=== PATIENT | female | born 1955 | race Caucasian/White ===

== ENCOUNTER → 2017-04-16 | Outpatient (CLI) | payer BC ==
[~2017-04-16] MED LIST: ALBUAER2 INH; BUPR150T5 PO; GLC500 PO; LANS30CA12 PO; MECL1TAB42 PO; MELA1TAB4 PO; METH-1305 PO; MOME50SP5 NAE; ONDA4TAB7 SL; SIMV20TA2 PO; SNG10 PO
[2017-04-16 12:55] LABS: BASO % 0.8 %; BASO ABS # 0.05 K/uL (0-0.2); COMPLETE YES; EOS % 3.2 %; HEMATOCRIT 38.3 % (37-47); IG% 0.2 %; LYMPH % 32.1 %; MEAN CELL VOLUME 87.6 fL (80-100); MEAN CORPUSCULAR HEMOGLOBIN 27.7 pg (25-34); MEAN CORPUSCULAR HGB CONC 31.6 g/dl (32-36); MEAN PLATELET VOLUME 8.9 fL (7.4-10.4); MONO % 8.3 %; NEUT % 55.4 %; PLATELET COUNT 369 K/uL (130-400); RED BLOOD COUNT 4.37 M/uL (4.2-5.4); WHITE BLOOD COUNT 5.91 K/uL (4.8-10.8)
[2017-04-16 13:19] LABS: MAGNESIUM 2.2 mg/dl (1.8-2.4)
[2017-04-16 13:30] LABS: ESTIMATED AVERAGE GLUCOSE 131 mg/dl; HA1C FLAG Normal (Normal)
[2017-04-16 15:04] LABS: ALT/SGPT 22 U/L (12-78); BLOOD UREA NITROGEN 10 mg/dl (7-18); BUN/CREATININE RATIO 12.3 (10-20); CALCIUM 9.3 mg/dl (8.5-10.1); CARBON DIOXIDE 25 mmol/L (21-32); CHLORIDE 107 mmol/L (98-107); CHOLESTEROL 170 mg/dl (0-200); CREATININE 0.83 mg/dl (0.60-1.20); GLUCOSE 85 mg/dl (70-99); POTASSIUM 4.1 mmol/L (3.5-5.1); SODIUM 140 mmol/L (136-145); TRIGLYCERIDES 261 mg/dl (0-150); VERY LOW DENSITY LIPOPROT CALC 52 mg/dl
[2017-04-16 15:17] LABS: ALB/GLOB RATIO 1.1 (0.9-2); ALKALINE PHOSPHATASE 97 U/L (45-117); AST/SGOT 14 U/L (15-37); CHOLESTEROL/HDL RATIO 3.9; HDL CHOLESTEROL 44 mg/dl; LDL CHOLESTEROL CALCULATED 74 mg/dl
== END | disposition home or self-care (01) ==
LOC: C.LABPVFM 07:41
PROVIDERS: ATTEND Family Medicine
DX: E11.9 Type 2 diabetes mellitus without complications (principal); E78.00 Pure hypercholesterolemia, unspecified; Z11.59 Encounter for screening for other viral diseases; E55.9 Vitamin D deficiency, unspecified; R51 Headache; R42 Dizziness and giddiness

== ENCOUNTER → 2017-04-26 | Outpatient (CLI) | payer BC ==
[~2017-04-26] MED LIST changes: -METH-1305 PO; +METH1TAB5 PO
== END | disposition home or self-care (01) ==
LOC: C.LABSPEC 12:59
PROVIDERS: ATTEND Dermatology
DX: L73.9 Follicular disorder, unspecified (principal)

== ENCOUNTER → 2017-05-07 | Outpatient (CLI) | payer BC ==
--- NOTE | 2017-05-07 13:06 | MAMMOGRAPHY REPORT ---
BILATERAL DIGITAL SCREENING MAMMOGRAM WITH CAD: 05/07/2017 CLINICAL HISTORY: Routine screening. Patient has no complaints. TECHNIQUE: Bilateral CC and MLO views were obtained. Current study was also evaluated with a Compute r Aided Detection (CAD) system. COMPARISON: Comparison is made to exams dated: 05/03/2016 mammogram, 05/02/2015 mammogram, 04/29/2014 m ammogram, 04/28/2013 mammogram, 04/25/2012 mammogram, and 04/24/2011 mammogram - [facility] er. BREAST COMPOSITION: The tissue of both breasts is almost entirely fatty. FINDINGS: There are scattered benign-appearing round and punctate microcalcifications. Two stable ci rcumscribed sub-centimeter masses in the upper outer quadrant of the left breast are unchanged in siz e dating back to at least 04/19/2009, therefore likely benign. No new suspicious mass, architectural distortion or cluster of microcalcifications is seen. IMPRESSION: ACR BI-RADS CATEGORY 1: NEGATIVE There is no mammographic evidence of malignancy. A 1 year screening mammogram is recommended. The pa tient will receive written notification of the results. Approximately 10% of breast cancers are not detected with mammography. A negative mammographic report should not delay biopsy if a clinically suggestive mass is present. Kaelyn Richard M.D. ay/:05/07/2017 08:06:39 Director Of Safety: Toyin Barron RT(R)(M), [facility] letter sent: Normal 1/2 BI-RADS Code: ACR BI-RADS Category 1: Negative
== END | disposition home or self-care (01) ==
LOC: C.MAMM 07:14
PROVIDERS: ATTEND Physician Assistant
DX: Z12.31 Encounter for screening mammogram for malignant neoplasm of breast (principal)

== ENCOUNTER → 2017-12-18 | Outpatient (CLI) | payer BC ==
[~2017-12-18] MED LIST changes: +METH-1305 PO; -METH1TAB5 PO
== END | disposition home or self-care (01) ==
LOC: C.LABSPEC 15:57
PROVIDERS: ATTEND Dermatology
DX: R21 Rash and other nonspecific skin eruption (principal)

== ENCOUNTER → 2017-12-24 | Outpatient (CLI) | payer BC ==
[2017-12-24 13:16] LABS: HEMOGLOBIN A1C 6.4 % (4.5-5.6)
[2017-12-24 13:40] LABS: ALT/SGPT 24 U/L (12-78); BLOOD UREA NITROGEN 11 mg/dl (7-18); CALCIUM 9.1 mg/dl (8.5-10.1); CARBON DIOXIDE 26 mmol/L (21-32); CREATININE 0.86 mg/dl (0.60-1.20); GLUCOSE 106 mg/dl (70-99); POTASSIUM 3.9 mmol/L (3.5-5.1); SODIUM 138 mmol/L (136-145)
[2017-12-24 13:43] LABS: CHOLESTEROL 176 mg/dl (0-200); LDL CHOLESTEROL CALCULATED 96 mg/dl
== END | disposition home or self-care (01) ==
LOC: C.LABPVFM 07:42
PROVIDERS: ATTEND Family Medicine
DX: E11.9 Type 2 diabetes mellitus without complications (principal); E78.00 Pure hypercholesterolemia, unspecified

== ENCOUNTER → 2018-02-10 | Outpatient (CLI) | payer BC | END | disposition home or self-care (01) | LOC: C.LAB1850 09:57 | PROVIDERS: ATTEND Internal Medicine Critical Care Medicine | DX: J45.909 Unspecified asthma, uncomplicated (principal) ==

== ENCOUNTER → 2018-05-13 | Outpatient (CLI) | payer BC ==
--- NOTE | 2018-05-13 16:19 | MAMMOGRAPHY REPORT ---
BILATERAL DIGITAL SCREENING MAMMOGRAM TOMOSYNTHESIS WITH CAD: 05/13/2018 CLINICAL HISTORY: Routine screening. Patient has no complaints. TECHNIQUE: The study was acquired using full field digital technology and interpreted from soft copy. Breast tomosynthesis in addition to standard 2D mammography was performed. Current study was also ev aluated with a Computer Aided Detection (CAD) system. COMPARISON: Comparison is made to exams dated: 05/07/2017 mammogram, 05/03/2016 mammogram, 05/02/2015 m ammogram, 04/29/2014 mammogram, 04/28/2013 mammogram, and 04/25/2012 mammogram - [facility] ter. BREAST COMPOSITION: The tissue of both breasts is almost entirely fatty. FINDINGS: There are 2 stable intramammary lymph nodes in the left upper outer quadrant. Scattered be nign-appearing calcifications. No suspicious mass, architectural distortion or cluster of microcalcif ications is seen. IMPRESSION: ACR BI-RADS CATEGORY 1: NEGATIVE There is no mammographic evidence of malignancy. A 1 year screening mammogram is recommended.( [id number]) The patient will receive written notification of the results. Some breast cancers are not detected with mammography. A negative mammographic report should not emiliana y biopsy if a clinically suggestive mass is present. Kaelyn Richard M.D. ay/:05/13/2018 16:02:44 Dog Food Shredder Operator: RT Feli(R)(M)(BD), [facility] letter sent: Normal 1/2 BI-RADS Code: ACR BI-RADS Category 1: Negative
== END | disposition home or self-care (01) ==
LOC: C.MAMM 09:36
PROVIDERS: ATTEND Family Medicine
DX: Z12.31 Encounter for screening mammogram for malignant neoplasm of breast (principal)